=== PATIENT | male | born 2000 | race Caucasian/White ===

== ENCOUNTER 2020-01-12 11:07 | Outpatient (CLI) | payer OTHER, SELFPAY ==
--- NOTE | 2020-01-12 | XR_ITS ---
WS: [id number] FOOT RIGHT TECHNIQUE: 3 views of the right foot CLINICAL INFORMATION: RIGHT FOOT PAIN COMPARISON: 2014 FINDINGS: No evidence of acute fracture or dislocation. Flattening of the talus unchanged from previous. Narrow ing of the calcaneocuboid joint is unchanged. Beaking of the anterior talus and anterior process of t he calcaneus. Slight navicular spurring. No acute findings. XR/XR foot RT min 3V* [id number] IMPRESSION: 1. 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 2. Narrowing of the calcaneocuboid joint 3. Alignment is unchanged since 2014
== END 2020-01-12 11:08 | disposition home or self-care (01) ==
LOC: RADOUTREAD 15:06
PROVIDERS: Visit Provider Nurse Practitioner Family
DX: Z76.89 Persons encountering health services in other specified circumstances (principal)

== ENCOUNTER 2020-02-08 08:23 | Outpatient (CLI) | payer OTHER, SELFPAY ==
--- NOTE | 2020-02-08 08:33 | XR_ITS ---
WS: [id number] PROCEDURE: XR chest 2V* [id number] CLINICAL INFORMATION: REGULATED PROGRAM MONITERING COMPARISON: July 13, 2015 FINDINGS: Heart: Normal cardiac silhouette. Lungs: Lungs are clear. No consolidation or pleural fluid. No acute pulmonary infiltrates. Bones: Normal visualized bony structures. XR/XR chest 2V* [id number] IMPRESSION: Normal chest
== END 2020-02-08 08:24 | disposition home or self-care (01) ==
LOC: RADWPI 08:30
PROVIDERS: Visit Provider Preventive Medicine Occupational Medicine
DX: Z51.81 Encounter for therapeutic drug level monitoring (principal)
CPT/HCPCS: 71046

== ENCOUNTER 2022-07-27 09:50 | Outpatient (CLI) | payer OTHER, SELFPAY ==
[2022-07-27 10:49] LABS: Epithelial Count Semen Rare /hpf; Red Blood Count Semen Rare /hpf; Sperm Immotility 98 % (50-60); Sperm Non-Progressive Motility 2 % (5-10); Viscosity Semen Droplets; White Blood Count Semen 0-4 /hpf
[2022-07-27 11:22] LABS: Sperm Count 0.2 mill/mL (40-160)
[2022-07-27 13:38] LABS: Sperm Vitality-% Live Sperm 20 %
== END 2022-07-27 09:51 | disposition home or self-care (01) ==
LOC: LAB 09:55
PROVIDERS: Visit Provider Obstetrics & Gynecology
DX: R30.0 Dysuria (principal)
CPT/HCPCS: 80503; 89320

== ENCOUNTER 2022-11-27 08:05 | Outpatient (CLI) | payer OTHER, SELFPAY ==
--- NOTE | 2022-11-27 08:30 | XR_ITS ---
WS: [id number] Chest 2 views, 11/27/2022 Clinical Data: REGULATED PROGRAM MONITORING Comparison: Two-view chest, 02/08/2020 Findings: No nodules, masses or effusions are seen. The heart is normal. The pulmonary vascularity is not increased. No pneumonia or pneumothorax is seen. XR/XR chest 2V* [id number] Impression: Negative chest.
== END 2022-11-27 08:06 | disposition home or self-care (01) ==
LOC: RAD 08:14
PROVIDERS: Visit Provider Preventive Medicine Occupational Medicine
DX: Z13.6 Encounter for screening for cardiovascular disorders (principal)
CPT/HCPCS: 71046

== ENCOUNTER 2023-10-16 11:34 | Outpatient (CLI) | payer OTHER, SELFPAY ==
[2023-10-16 12:39] LABS: Sperm Count 0.1 mill/mL (40-160)
[2023-10-16 12:40] LABS: Epithelial Count Semen Rare /hpf; Pathology Referral Yes; Sperm Immotility 95 % (50-60); Sperm Non-Progressive Motility 0 % (5-10); Sperm Progressive Motility 5 % (31-34); Viscosity Semen Droplets; White Blood Count Semen 0-4 /hpf
[2023-10-16 14:27] LABS: Sperm Vitality-% Live Sperm 14 %
== END 2023-10-16 11:35 | disposition home or self-care (01) ==
LOC: LAB 11:35
PROVIDERS: Visit Provider Obstetrics & Gynecology
DX: N46.11 Organic oligospermia (principal); I86.1 Scrotal varices
CPT/HCPCS: 80503; 89320

== ENCOUNTER 2024-05-22 09:05 | Outpatient (CLI) | payer OTHER, SELFPAY ==
[2024-05-22 10:31] LABS: Side 1 12; Side 2 12; Sperm Count 0.1 mill/mL (40-160)
[2024-05-22 10:32] LABS: Viscosity Semen Droplets
[2024-05-22 10:33] LABS: Sperm Immotility 95 % (50-60); Sperm Non-Progressive Motility 0 % (5-10); Sperm Progressive Motility 5 % (31-34); White Blood Count Semen 15-25 /hpf
[2024-05-22 10:34] LABS: Pathology Referral Yes; Sperm Vitality-% Live Sperm 24 %
== END 2024-05-22 09:06 | disposition home or self-care (01) ==
LOC: LAB 09:13
DX: E29.1 Testicular hypofunction (principal)
CPT/HCPCS: 80503; 89320